=== PATIENT | female | born 1985 | race Caucasian/White ===

== ENCOUNTER 2018-09-11 04:00 | Inpatient (IN) | payer MEDICAID ==
[~2018-09-11] VITALS: Ht 154.9 cm; Wt 74.5 kg
[2018-09-11 04:20] VITALS: BP 119/86; PULSE 100; RESP 17; Ht 154.9 cm; Wt 74.5 kg
[2018-09-11] MEDS ORDERED: PREN1TAB91 PO (04:22)
[2018-09-11] MEDS ORDERED: LACTATED RINGER'S 1,000 ML IV SCH (04:54)
[2018-09-11] MEDS ORDERED: MISOPROSTOL 200 MCG TAB PR PRN ×2 (05:00→18:30)
[2018-09-11] MEDS ORDERED: CARBOPROST 250 MCG INJ IM PRN ×2 (05:00→18:30)
[2018-09-11] MEDS ORDERED: BUTORPHANOL 2 MG INJ IV PRN (05:00)
[2018-09-11] MEDS ORDERED: OXYTOCIN 30 UNITS/LR 500 ML IV PRN ×2 (05:00→18:30)
[2018-09-11] MEDS ORDERED: OXYTOCIN 30 UNITS/LR 500 ML IV SCH ×3 (05:00→11:00)
[2018-09-11] MEDS ORDERED: LIDOCAINE 1% (MPF) 30 ML INJ INJ PRN (05:00)
[2018-09-11] MEDS ORDERED: METHYLERGONOVINE 0.2 MG INJ IM PRN ×2 (05:00→18:30)
--- NOTE | 2018-09-11 05:14 | HP ---
Date/Time of Note Date/Time of Note DATE: 09/11/18 TIME: 05:04 OB - History Hx of Present Free Text/Dictation 33 y.o at [id number] experienced SROM at 09/11/18 Initial VE 5/80/-2 clear fluid but patient not c/o pain at all. 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 Chief Complaint: srom Estimated Due Date: Oct 04, 2018 : 5 Para: 4 Spontaneous : 0 Therapeutic : 0 Care: Other Ultrasounds: Other Obstetrical Complications: None, Other (1 hr GTT 140 no 3hr GTT result noted on Lab result) Medical Complications: None Past Family/Social History * Past Medical, Surgical, Family and Obstetric Histories reviewed from chart. Blood Type: A+ Rubella: immune RPR/VDRL: Negative GBS Status: Negative HBsAG: Negative OB Admission Exam Vital Signs Vital Signs Vital Signs Date Temp Pulse Resp B/P (MAP) Pulse Ox O2 O2 Flow FiO2 Time Delivery Rate 09/11/18 98.4 100 17 119/86 Room Air 04:20 (97) Physical Exam HEENT: WNL Heart: Rhythm Normal Lungs: Clear, Equal Abdomen: WNL Extremities: Normal Reflexes: Normal Cervical Dilatation: 5cm Effacement: 75% Station: -2 Membranes: Ruptured Amniotic Fluid: Clear Heart Rate: 140's Accelerations: Accelerations Present Decelerations: No Decelerations Varibility: Moderate Contractions on Admission: >10 Minutes Apart Intensity: Mild OB Assessment/Plan Reason for admission: rupture of membranes Other Assessment: A IUP 36w5d SROM in labor P expectant management Plan: Expectant Management MARION GUZMAN MD Sep 11, 2018 05:14
--- NOTE | 2018-09-11 14:33 | PREAC ---
Date/Time of Note Date/Time of Note DATE: 09/11/18 TIME: 14:32 Anesthesia Eval and Record Evaluation Time Pre-Procedure Interview DATE: 09/11/18 TIME: 14:32 Age 33 Sex female NPO: 8 hrs Preoperative diagnosis labor pain Planned procedure labor epidural Past Medical History Past Medical History: None Surgery & Anesthesia Issues No known issue Meds Anticoagulation: No Beta Jazmyne within 24 hr: No Reason Beta Jazmyne not given: Pt. not on B-Jazmyne Reported Medications Pnv95/Ferrous Fumarate/FA ( Formula Tablet) 1 Each Tablet, 1 EACH PO, TAB 09/11/18 Current Medications Lactated Ringer's 1,000 ml @ 125 mls/hr Q8H IV Last administered on 09/11/18at 05:39; Admin Dose 125 MLS/HR; Start 09/11/18 at 04:54 Butorphanol Tartrate (Stadol) 2 mg Q2H PRN IV .PAIN; Start 09/11/18 at 05:00 Lidocaine (Xylocaine 1% (Mpf)) 30 ml ONCE PRN INJ .EPISIOTOMY; Start 09/11/18 at 05:00 Oxytocin/Lactated Ringer's 500 ml @ 500 mls/hr ONCE POST IV ; Start 09/11/18 at 05:00 Oxytocin/Lactated Ringer's 500 ml @ 125 mls/hr POST IV ; Start 09/11/18 at 05:00 Oxytocin/Lactated Ringer's 500 ml @ 0 mls/hr ONCE PRN IV .VAGINAL BLEEDING; Start 09/11/18 at 05:00 Methylergonovine Maleate (Methergine) 0.2 mg ONCE PRN IM .VAGINAL BLEEDING; Start 09/11/18 at 05:00 Carboprost Tromethamine (Hemabate) 250 mcg ONCE PRN IM .VAGINAL BLEEDING; Start 09/11/18 at 05:00 Misoprostol (Cytotec) 1,000 mcg ONCE PRN IA .VAGINAL BLEEDING; Start 09/11/18 at 05:00 Oxytocin/Lactated Ringer's 500 ml @ 0 mls/hr Q0M IV Last administered on 09/11/18at 11:05; Admin Dose 1 MLS/HR; Start 09/11/18 at 11:00 Meds reviewed: Yes Allergies Coded Allergies: No Known Allergy (Unverified , 09/11/18) Allergies Reviewed: Yes Labs/Studies Labs Reviewed: Reviewed by anesthesiologist Result Diagram: 09/11/18 0450 Laboratory Tests 09/11/18 04:50 Blood Bank Test 09/11/18 04:50 Antibody Screen NEGATIVE Blood Type A POSITIVE Rh Immune Globulin Candidate NO test: Positive Pre-procedure Exam Last vitals Vital Signs Date Temp Pulse Resp B/P (MAP) Pulse Ox O2 O2 Flow FiO2 Time Delivery Rate 09/11/18 98.4 100 17 119/86 Room Air 04:20 (97) Airway: Adequate mouth opening, Adequate thyromental dist Mallampati: Mallampati III Teeth: Normal Lung: Normal Heart: Normal ASA Physical Status ASA physical status: 2 Emergency: None Planned Anesthetic Neuraxial: Epidural Planned Pain Management Epidural, Parenteral pain med, Other neuraxial med Pre-operative Attestations Prior to commencing anesthesia and surgery, the patient was re-evaluated, there was verification of: *The patient's identity *The results of appropriate recent lab work and preoperative vital signs *The above evaluation not changing prior to induction *Anesthetic plan, risk benefits, alternative and complications discussed with patient/family; questions answered; patient/family understands, accepts and wishes to proceed. AALIYAH ROSARIO MD Sep 11, 2018 14:33
[2018-09-11] MEDS ORDERED: ONDANSETRON 4 MG INJ IV PRN (15:00)
[2018-09-11] MEDS ORDERED: FENTAnyl 2MCG/ML-ROPIV 0.2% 100 ML BAG EPI SCH (15:00)
[2018-09-11] MEDS ORDERED: ZOLPIDEM 5 MG TAB PO PRN ×2 (15:00→18:30)
[2018-09-11] MEDS ORDERED: HYDROmorphONE 0.5 MG/0.5 ML SYG IV PRN ×2 (15:00)
[2018-09-11] MEDS ORDERED: DIPHENHYDRAMINE 50 MG INJ IV PRN (15:00)
[2018-09-11] MEDS ORDERED: KETOROLAC 30 MG INJ IV PRN (15:00)
[2018-09-11] MEDS ORDERED: NALOXONE (0.4 MG/ML) INJ IV PRN (15:00)
--- NOTE | 2018-09-11 17:02 | LDN ---
Date/Time of Note Date/Time of Note DATE: 09/11/18 TIME: 16:59 Delivery Summary of normal female Weeks of Gestation 36w5d Placenta Delivered: Spontaneously Meconium: none Episiotomy: No Perineal laceration: 1 Laceration repair: 0000 ch gut Anesthesia type: Epidural Estimated blood loss: 100 Sponge & Needle done & correct: Yes All needle counts correct: Yes Any foreign bodies felt in the: No Delivery Information Sex Sex: female Apgars 1 Minute: 9 5 Minute: 9 Suctioning Nose & mouth suctioned at raul: Yes Delee suction performed: Yes Umbilical Cord Umbilical cord with: 3 Vessels Cord presentations: no nuchal cord Cord Blood was obtained: Yes Mother & Baby Disposition Disposition Mom & Baby to Maternity; Good: Yes Mom transferred to: Other Baby to NICU: No () MARION GUZMAN MD Sep 11, 2018 17:02
[2018-09-11 18:30] VITALS: BP 124/79; PULSE 57; RESP 18
[2018-09-11] MEDS ORDERED: BENZOCAINE 20% 56 ML SPRAY TOP PRN (18:30)
[2018-09-11] MEDS ORDERED: WITCH HAZEL/GLYCERIN PAD PR PRN (18:30)
[2018-09-11] MEDS ORDERED: OXYCODONE/ASPIRIN (4.88/325) TAB PO PRN (18:30)
[2018-09-11 20:00] VITALS: BP 115/70; PULSE 77; RESP 18
[2018-09-11] MEDS: SENNA/DOCUSATE NA (8.6MG/50MG) TAB PO SCH (21:17)
[2018-09-11] MEDS: LANOLIN HPA 1 PKT TOP PRN (21:18)
--- NOTE | 2018-09-11 22:00 | PAC ---
Date/Time of Note Date/Time of Note DATE: 09/11/18 TIME: 21:59 Post-Anesthesia Notes Post-Anesthesia Note Last documented vital signs Vital Signs Date Temp Pulse Resp B/P (MAP) Pulse Ox O2 O2 Flow FiO2 Time Delivery Rate 09/11/18 98.5 57 18 124/79 Room Air 18:30 (94) Activity: WNL Respiratory function: WNL Cardiovascular function: WNL Mental status: Baseline Pain reasonably controlled: Yes Hydration appropriate: Yes Nausea/Vomiting absent: Yes AALIYAH ROSARIO MD Sep 11, 2018 22:00
[2018-09-11] MEDS: IBUPROFEN 600 MG TAB PO SCH (23:38)
[2018-09-12] VITALS: BP 117/75; PULSE 65; RESP 18
[2018-09-12 04:19] VITALS: BP 115/69; PULSE 80; RESP 17
[2018-09-12] MEDS: IBUPROFEN 600 MG TAB PO SCH ×4 (05:46→23:31)
[2018-09-12] MEDS: SENNA/DOCUSATE NA (8.6MG/50MG) TAB PO SCH ×2 (08:26→20:40)
[2018-09-12 08:30] VITALS: BP 100/54; PULSE 86; RESP 18
[2018-09-12] MEDS ORDERED: INFLUENZA VIRUS VACCINE 0.5 ML (DISPENSING) IM* ONE (09:00)
[2018-09-12] MEDS: LANOLIN HPA 1 PKT TOP PRN (11:59)
[2018-09-12 16:20] VITALS: BP 122/80; PULSE 93; RESP 18
--- NOTE | 2018-09-12 17:39 | PN ---
Date/Time of Note Date/Time of Note DATE: 09/12/18 TIME: 17:36 OB Subjective Subjective Subjective Vaginal bleeding light. Breast-feeding. Reports tender nipples. Complaining of cramps with breast-feeding. Urinated. Ambulating. Denies any other complaint. OB Objective Objective Objective General appearance: Alert and oriented x4 does not appear to be in any acute distress Abdomen: Soft, fundus palpable below the umbilicus and nontender Breast: No evidence of mastitis. Bilateral effusion noted Extremities: No calf tenderness, no click no edema no cords palpable VS - Last 72 Hours, by Label Date Temp Pulse Resp B/P (MAP) Pulse Ox O2 O2 Flow FiO2 Time Delivery Rate 09/12/18 98.3 93 18 122/80 Room Air 16:20 (94) 09/12/18 98.3 86 18 100/54 Room Air 08:30 (69) 09/12/18 98.4 80 17 115/69 Room Air 04:19 (84) 09/12/18 98.2 65 18 117/75 Room Air 00:00 (89) 09/11/18 98.1 77 18 115/70 Room Air 20:00 (85) 09/11/18 98.5 57 18 124/79 Room Air 18:30 (94) 09/11/18 98.4 100 17 119/86 Room Air 04:20 (97) Laboratory Tests Test 09/12/18 06:13 09/12/18 07:18 Lab Scanned Report REFERENCE LAB White Blood Count 7.3 Red Blood Count 4.17 L Hemoglobin 12.2 Hematocrit 35.9 L Mean Corpuscular Volume 86.1 Mean Corpuscular Hemoglobin 29.3 Mean Corpuscular Hemoglobin Concent 34.0 Red Cell Distribution Width 13.2 Platelet Count 203 Mean Platelet Volume 9.3 Immature Granulocytes % 0.400 Neutrophils % 72.0 Lymphocytes % 19.8 Monocytes % 6.9 Eosinophils % 0.5 Basophils % 0.4 Nucleated Red Blood Cells % 0.0 Immature Granulocytes # 0.030 Neutrophils # 5.3 Lymphocytes # 1.4 Monocytes # 0.5 Eosinophils # 0.0 Basophils # 0.0 Nucleated Red Blood Cells # 0.0 OB Assessment/Plan Other Assessment: Status post ( PROM at 36 weeks and 5 days then went to labor_) day #1 Doing well Routine care Bilateral fissure, consultation discussed Technique of breast-feeding discussed Anticipate DC home tomorrow IDALIA HARRIS MD Sep 12, 2018 17:39
[2018-09-12 20:00] VITALS: BP 110/68; PULSE 78; RESP 20
[2018-09-12] MEDS: OXYCODONE/ASPIRIN (4.88/325) TAB PO PRN (20:45)
[2018-09-13 04:03] VITALS: BP 108/65; PULSE 78; RESP 20
[2018-09-13] MEDS: IBUPROFEN 600 MG TAB PO SCH ×2 (05:32→12:05)
[2018-09-13 08:00] VITALS: BP 93/51; PULSE 76; RESP 18
[2018-09-13] MEDS ORDERED: DIPHTH/TET/ACEL PERTUSS (ADULT) 0.5 ML VIAL IM* ONE (09:00)
[2018-09-13] MEDS: SENNA/DOCUSATE NA (8.6MG/50MG) TAB PO SCH (09:04)
[2018-09-13] MEDS: OXYCODONE/ASPIRIN (4.88/325) TAB PO PRN (09:05)
[2018-09-13] MEDS: LANOLIN HPA 1 PKT TOP PRN (12:16)
--- NOTE | 2018-09-13 14:43 | DS ---
Date/Time of Note Date/Time of Note DATE: 09/13/18 TIME: 14:43 Discharge Summary Admission/Discharge Info Admit Date/Time Sep 11, 2018 at 04:35 Discharge Date/Time 09/13/2018 Discharge Diagnosis Patient Condition: Good Hospital Course uneventful Home Meds Reported Medications Pnv95/Ferrous Fumarate/FA ( Formula Tablet) 1 Each Tablet, 1 EACH PO, TAB 09/11/18 Primary Care Provider Care Physician No Primary TONY AGUILERA M.D. Sep 13, 2018 14:43
--- NOTE | 2018-09-13 14:43 | QN ---
Documentation Comment PPD#2 is table afebrile tolerates diet No VB +BM +voids Vs stable Gen NAD Abd soft NT ND Genitalia No blood at perineum --->Discharge plan TONY AGUILERA M.D. Sep 13, 2018 14:43
== END 2018-09-13 17:45 | disposition home or self-care (01) | DRG 807 ==
LOC: OBT 04:00 → L-D 04:00 → OBT 04:35 → PP1 18:34
PROVIDERS: ADMIT Obstetrics & Gynecology; ATTEND Obstetrics & Gynecology
PROC: 10E0XZZ Delivery of Products of Conception, External Approach (ICD-10-PCS; principal; 2018-09-11)
PROC: 0HQ9XZZ Repair Perineum Skin, External Approach (ICD-10-PCS; 2018-09-11)
DX: O42.013 Preterm premature rupture of membranes, onset of labor within 24 hours of rupture, third trimester (principal); Z37.0 Single live birth; O70.9 Perineal laceration during delivery, unspecified; O92.13 Cracked nipple associated with lactation; Z3A.36 36 weeks gestation of pregnancy
CPT/HCPCS: 85025; 85610; 85730; 86592; 86850; 86900; 86901; 87340; 90686; 90715; 99464; G0463; J2590; J3010; J7120